=== PATIENT | female | born 1950 | race Caucasian/White ===

== ENCOUNTER 2017-07-18 21:15 | Emergency (ER) | payer MEDICARE, BC ==
[2017-07-18] MEDS ORDERED: ASCO25TA PO (21:32)
[2017-07-18] MEDS ORDERED: AMIO200T PO (21:32)
[2017-07-18] MEDS ORDERED: ACET50TAOT PO (21:32)
[2017-07-18] MEDS ORDERED: ASPI325T PO (21:32)
[2017-07-18] MEDS ORDERED: BUPR15TASR PO (21:32)
[2017-07-18] MEDS ORDERED: SIMV20TA2 PO (21:39)
[2017-07-18] MEDS ORDERED: [UNRECOGNIZED DRUG - CODE] PO (21:39)
[2017-07-18] MEDS ORDERED: LEVO125T4 PO (21:39)
[2017-07-18] MEDS ORDERED: LOMO2.5T PO (21:39)
[2017-07-18] MEDS ORDERED: ENAL10TA2 PO (21:39)
[2017-07-18] MEDS ORDERED: D 1010004 PO (21:39)
[2017-07-18] MEDS ORDERED: COUM2.5T17 PO (21:39)
[2017-07-18] MEDS ORDERED: FERR325T3 PO (21:39)
[2017-07-18] MEDS ORDERED: TOPI50TA9 PO (21:39)
[2017-07-18] MEDS ORDERED: OMEP20CA3 PO (21:39)
[2017-07-18] MEDS ORDERED: NS 500 ML IV ONE (22:15)
[2017-07-18] MEDS ORDERED: fentaNYL 100 MCG/2 ML INJECTION (J3010) IV ONE ×2 (22:15→22:45)
[2017-07-18 22:43] LABS: BASO % 0.7 % (0.0-1.0); EOS # 0.1 K/mm3 (0.0-0.50); EOS % 0.8 % (0.0-3.0); LARGE UNSTAINED CELL # 0.2 K/mm3 (0.0-0.4); LARGE UNSTAINED CELL % 2.9 % (0.0-4.0); LYMPH % 14.1 % (24.0-44.0); MEAN CORPUSCULAR HEMOGLOBIN 33.1 pg (27.0-33.0); MEAN CORPUSCULAR HGB CONC 34.2 g/dl (32.0-36.5); MEAN CORPUSCULAR VOLUME 97.1 fl (80.0-96.0); MONO # 0.5 K/mm3 (0.0-0.8); MONO % 6.6 % (0.0-5.0); NEUTROPHILS # 5.3 K/mm3 (1.8-7.7); NEUTROPHILS % 74.9 % (36.0-66.0); PLATELET COUNT, AUTOMATED 308 k/mm3 (150-450); RED CELL DISTRIBUTION WIDTH 12.8 % (11.5-14.5)
[2017-07-18 23:48] LABS: INR 2.97
[2017-07-19 00:05] LABS: ANION GAP 8 MEQ/L (8-16); BLOOD UREA NITROGEN 7 MG/DL (7-18); CALCIUM LEVEL 8.2 MG/DL (8.8-10.2); CARBON DIOXIDE LEVEL 24 MEQ/L (21-32); CHLORIDE LEVEL 93 MEQ/L (98-107); CREATININE FOR GFR 0.67 MG/DL (0.55-1.02); GLOMERULAR FILTRATION RATE > 60.0 (>45); GLUCOSE, FASTING 141 MG/DL (80-110); POTASSIUM SERUM 3.8 MEQ/L (3.5-5.1); SODIUM LEVEL 125 MEQ/L (136-145)
[2017-07-19] MEDS ORDERED: fentaNYL 100 MCG/2 ML INJECTION (J3010) IV ONE (00:30)
[2017-07-19] MEDS: MORPHINE 2 MG/ML 1ML SYRINGE IV PRN ×2 (02:57→04:58)
[2017-07-19] MEDS ORDERED: MORPHINE 2 MG/ML 1ML SYRINGE IV ONE (07:45)
--- NOTE | 2017-07-19 09:42 | REP ---
Nickel: Knee pain. Technique: PA and lateral. 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 Lateral view demonstrates soft tissue swelling and large joint/suprapatellar effusion. No obvious acute fracture identified. Impression: Soft tissue swelling and large effusion. Signed by Jose Gimenez MD 07/19/2017 08:01 A
[2017-07-19] MEDS ORDERED: MORPHINE 4 MG/ML 1ML SYRINGE IV ONE (14:45)
[2017-07-19 16:31] VITALS: BP_SYST 94
== END 2017-07-19 16:41 | disposition short-term general hospital (02) ==
LOC: M ED 21:15
DX: T82.9XXA Unspecified complication of cardiac and vascular prosthetic device, implant and graft, initial encounter (principal); M25.562 Pain in left knee; Z79.01 Long term (current) use of anticoagulants
CPT/HCPCS: 36415; 73560; 80048; 85025; 85610; 96374; 96375; 96376; 99284; J3010